=== PATIENT | male | born 1965 | race Caucasian/White ===

== ENCOUNTER 2022-12-23 16:45 | Outpatient (RCR) | payer BC, SELFPAY | END 2023-01-23 08:49 | disposition home or self-care (01) | PROVIDERS: PCP Family Medicine; Visit Provider Family Medicine | DX: M25.651 Stiffness of right hip, not elsewhere classified (principal); M16.11 Unilateral primary osteoarthritis, right hip; R53.1 Weakness; M62.89 Other specified disorders of muscle; Z51.89 Encounter for other specified aftercare | CPT/HCPCS: 97110; 97140; 97161 ==